=== PATIENT | female | born 1985 | race Caucasian/White ===

== ENCOUNTER 2018-07-16 07:09 | Inpatient (IN) | payer OTHER ==
[2018-07-16] MEDS ORDERED: Nalbuphine 20 MG/ML 1 ML Syringe IVPUSH PRN (08:34)
[2018-07-16] MEDS ORDERED: Ondansetron 4 MG/2 ML SDV IVPUSH PRN (08:34)
[2018-07-16] MEDS ORDERED: Sodium Chloride 0.9% 10 ML Syringe FLUSH PRN (08:34)
[2018-07-16] MEDS ORDERED: Oxytocin/Lactated Ringers 10 UNIT/1,000 ML BAG IV SCH ×2 (08:45)
[2018-07-16] MEDS ORDERED: Lactated Ringers 1,000 ML IV SCH (08:45)
--- NOTE | 2018-07-16 11:05 | PCM.LDHP ---
L&D History of Present Illness - General Date of Service: 07/16/18 Admit Problem/Dx: Patient Status Order with Admit Dx/Problem 07/16/18 08:34 Patient Status [ADT] Routine Admission Diagnosis/Problem Admission Diagnosis/Problem Source of Information: Patient, Old Records History Limitations: Reports: No Limitations - History of Present Illness Introduction:: Garcia is a 33 yo G3 P 2-0-0-2 white female who is admitted for elective induction this morning of 07/16/[address] Eng. LYNDA is 07/16/18 by ultrasound done on 12/24/17. She has had two previous full term that occurred by [facility]. Patient had menarche at age 14 and occurs regularly at 28 day intervals. Previous two deliveries are as follow: 1.) Female born 10/30/2010 at 38 weeks gestation age. 7 lbs 5 oz. [facility] [place] Child's name is Michael 2.) Female born 03/25/2014 at 38 4/7 weeks gestation age. 8lbs 3 oz. [facility] in [place]. Child's name is Joy Blanton course was unremarkable. Group B strep was negative. course started at 10 5/7 weeks gestation. She gained 21 lbs through 168--> 189 lbs. Fundal growth was appropriate. No problems were encountered. Vitals remained stable throughout course Laboratory testing: Initial: O-, ( has negative O-) antibody screen negative, HgB 12.7, Plts 229,000, Rubella immune, VDRL/RPR is nonreactive, HBsAg, HIV are negative. Chlamydia, gonorrhea were not done. Second: Hgb 11.6, Plts 214 and GTT was 100 Third: Group B strep negative - Related Data Allergies/Adverse Reactions: Allergies Allergy/AdvReac Type Severity Reaction Status Date / Time No Known Allergies Allergy Verified 03/25/15 11:51 Home Medications: Home Meds Pnv with Ca,No.71/Iron/Fa [ Vitamin Tablet] 1 each PO DAILY 03/25/15 [ History] Benzocaine/Menthol [Dermoplast Pain Relief [place]] 1 applic TOP ASDIRECTED PRN # 20 canister 03/26/15 [Rx] Ibuprofen [Motrin] 600 mg PO Q4H PRN #30 tablet 03/26/15 [Rx] Lanolin [Lansinoh HPA] 1 applic TOP ASDIRECTED PRN #30 crm 03/26/15 [Rx] Sophia Ni [Tucks] 1 pad TOP ASDIRECTED PRN #30 pad 03/26/15 [Rx] Past Medical History - Past Health History Medical/Surgical History: Denies Medical/Surgical History - Past Surgical History Other HEENT Surgeries/Procedures: wisdom teeth Social & Family History - Family History Family Medical History: Noncontributory - Tobacco Use Smoking Status *Q: Never Smoker Second Hand Smoke Exposure: No - Caffeine Use Caffeine Use: Reports: None - Alcohol Use Days Per Week of Alcohol Use: 0 - Recreational Drug Use Recreational Drug Use: No H&P Review of Systems - Review of Systems: Review Of Systems: See Below General: Reports: No Symptoms HEENT: Reports: No Symptoms Pulmonary: Reports: No Symptoms Cardiovascular: Reports: No Symptoms Gastrointestinal: Reports: No Symptoms Genitourinary: Reports: No Symptoms Musculoskeletal: Reports: No Symptoms Skin: Reports: No Symptoms Neurological: Reports: No Symptoms Hematologic/Lymphatic: Reports: No Symptoms L&D Exam - Exam Exam: See Below - Vital Signs Weight: 189 lb - Exam General: Alert, Oriented, Cooperative Neck: Supple, Trachea Midline Lungs: Clear to Auscultation, Normal Respiratory Effort Cardiovascular: Regular Rate, Regular Rhythm, Normal S1, Normal S2 Genitourinary: Cervical dilitation, Enlarged uterus Extremities: Normal Inspection, Normal Range of Motion, Non-Tender, No Pedal Edema, Normal Capillary Refill Skin: Warm, Dry, Intact Psychiatric: Alert, Normal Affect, Normal Mood - Patient Data Lab Results Last 24 hrs: Laboratory Results - last 24 hr 07/16/18 Range/Units 09:00 WBC 9.77 (3.98-10.04) K/mm3 RBC 4.12 (3.98-5.22) M/mm3 Hgb 13.0 (11.2-15.7) gm/L Hct 37.7 (34.1-44.9) % MCV 91.5 (79.4-94.8) fl MCH 31.6 (25.6-32.2) pg MCHC 34.5 (32.2-35.5) g/dl RDW Std Deviation 41.4 (36.4-46.3) fL Plt Count 200 (182-369) K/mm3 MPV 10.4 (9.4-12.3) fl Neut % (Auto) 74.8 H (34.0-71.1) % Lymph % (Auto) 18.6 L (19.3-51.7) % [place] % (Auto) 5.8 (4.7-12.5) % Eos % (Auto) 0.4 L (0.7-5.8) Baso % (Auto) 0.1 (0.1-1.2) % Neut # (Auto) 7.30 H (1.56-6.13) K/mm3 Lymph # (Auto) 1.82 (1.18-3.74) K/mm3 [place] # (Auto) 0.57 H (0.24-0.36) K/mm3 Eos # (Auto) 0.04 (0.04-0.36) K/mm3 Baso # (Auto) 0.01 (0.01-0.08) K/mm3 Result Diagrams: 07/16/18 09:00 Problem List Initiated/Reviewed/Updated: Yes Orders Last 24hrs: Active Orders 24 hr Category Date Time Status Patient Status [ADT] Routine ADT 07/16/18 08:34 Active Activity as Tolerated [RC] PFP Care 07/16/18 08:34 Active Communication Order [RC] ASDIRECTED Care 07/16/18 08:34 Active Heart Tones [RC] ASDIRECTED Care 07/16/18 08:35 Active Non Stress Test [RC] PER UNIT ROUTINE Care 07/16/18 08:34 Active Notify Provider [RC] PFP Care 07/16/18 08:34 Active Notify Provider [RC] PRN Care 07/16/18 08:34 Active Peripheral IV Care [RC] . DIRECTED Care 07/16/18 08:35 Active Pump Management, Intrathecal [RC] ASDIRECTED Care 07/16/18 08:41 Active Urinary Catheter Assessment [RC] ASDIRECTED Care 07/16/18 08:34 Active Vital Signs [RC] PER UNIT ROUTINE Care 07/16/18 08:34 Active Regular Diet [DIET] Diet 07/16/18 Breakfast Active RAPID PLASMA REAGIN,RPR [CHEM] Routine Lab 07/16/18 09:00 Received Lactated Ringers [Ringers, Lactated] 1,000 ml Med 07/16/18 08:45 Active IV ASDIRECTED Lidocaine 1% [Xylocaine 1%] Med 07/16/18 12:00 Once 50 ml INJECT ONETIME ONE Nalbuphine [Nubain] Med 07/16/18 08:34 Active 10 mg IVPUSH Q2H PRN Ondansetron [Zofran] Med 07/16/18 08:34 Active 4 mg IVPUSH Q4H PRN Oxytocin/Lactated Ringers [Pitocin in LR 10 Units/1,000 Med 07/16/18 08:45 Active ML] 10 unit in 1,000 ml IV .CONTINUOUS Oxytocin/Lactated Ringers [Pitocin in LR 10 Units/1,000 Med 07/16/18 08:45 Active ML] 10 unit in 1,000 ml IV TITRATE Sodium Chloride 0.9% [Saline Flush] Med 07/16/18 08:34 Active 10 ml FLUSH ASDIRECTED PRN Electronic Heart Tones Ext w TOCO [WOMSER] Oth 07/16/18 08:34 Ordered Routine Electronic Heart Tones Internal [WOMSER] Per Unit Oth 07/16/18 08:34 Ordered Routine Peripheral IV Insertion Adult [OM.PC] Routine Oth 07/16/18 08:34 Ordered Resuscitation Status Routine Resus Stat 07/16/18 08:34 Ordered Medication Orders Lactated Ringer's (Ringers, Lactated) 1,000 mls @ 100 mls/hr IV ASDIRECTED ANTHONY Last Admin: 07/16/18 09:16 Dose: 100 mls/hr Oxytocin/Lactated Ringer's (Pitocin In Lr 10 Units/1,000 Ml) 10 unit in 1,000 mls @ 12 mls/hr IV TITRATE ANTHONY; Protocol Last Titration: 07/16/18 10:42 Dose: 8 munits/min, 48 mls/hr Titration: 07/16/18 10:00 Dose: 6 munits/min, 36 mls/hr Titration: 07/16/18 09:35 Dose: 4 munits/min, 24 mls/hr Admin: 07/16/18 09:16 Dose: 2 munits/min, 12 mls/hr Oxytocin/Lactated Ringer's (Pitocin In Lr 10 Units/1,000 Ml) 10 unit in 1,000 mls @ 500 mls/hr IV .CONTINUOUS ANTHONY Lidocaine HCl (Xylocaine 1%) 50 ml INJECT ONETIME ONE Stop: 07/16/18 12:01 Nalbuphine HCl (Nubain) 10 mg IVPUSH Q2H PRN PRN Reason: pain Ondansetron HCl (Zofran) 4 mg IVPUSH Q4H PRN PRN Reason: Nausea/Vomiting Sodium Chloride (Saline Flush) 10 ml FLUSH ASDIRECTED PRN PRN Reason: Keep Vein Open Assessment/Plan Comment:: Patient is a 35 yo G 3 P2-0-0-2 at 40 weeks gestational age today, who is admitted for an elective induction performed by Dr. Eng Plan: 1.) Start Pitocin 2.) Monitor activity 3.) Induction done by Dr. Eng 4.) Epidural was discussed. Plan to have natural 4.) Breast feeding
[2018-07-16] MEDS ORDERED: Lidocaine 1% 50 ML MDV INJECT ONE (12:00)
--- NOTE | 2018-07-16 19:38 | PCM.SN ---
- Free Text/Narrative Note: Delivery note: Garcia is a 33-year-old 3 now para 3003 which was at 40-0/7 weeks gestational age by early ultrasound with an LYNDA of 07/16/2018 who was admitted for elective induction of labor this morning. Pitocin induction with artificial rupture membranes augmentation. Patient progressed rather slowly to approximate 7 m then rapidly progressed to complete and delivered somewhat precipitously. The baby was a male infant Apgars of 9 and 9, length of 20 inches, born at 1905 hrs. Baby weighed 3210 g (7 lbs. 1 oz.). Baby was placed on mom's abdomen. The cord was clamped 2 and cut by the baby's father. The umbilical cord had 3 vessels. Cord blood was obtained. Pitocin was increased to 500 mL an hour to facilitate uterine contraction and decreased likelihood of bleeding. Patient had a second degree laceration which was repaired with 3-0 Monocryl suture after infiltration with lidocaine 1%12 mL. She tolerated this well. Placenta delivered in a Morales presentation, appeared intact and complete and was discarded patient desire. 100 mL. Patient plans to breast-feed. Condition: Good
[2018-07-16] MEDS ORDERED: Docusate Sodium 100 MG Cap PO PRN (19:39)
[2018-07-16] MEDS ORDERED: Acetaminophen 325 MG Tab PO PRN (19:39)
[2018-07-16] MEDS ORDERED: Lanolin 100% Cream 7 GM Tube TOP PRN (19:39)
[2018-07-16] MEDS ORDERED: Benzocaine/Menthol 20%-0.5% Spray 56 GM Canister TOP PRN (19:39)
[2018-07-16] MEDS ORDERED: Witch Hazel Medicated Pads 100/Jar TOP PRN (19:39)
[2018-07-16] MEDS: Ibuprofen 600 MG Tab PO PRN (20:15)
[2018-07-16] MEDS: Lidocaine 1% 50 ML MDV ONE ×2 (20:17→20:18)
[2018-07-17] MEDS: Ibuprofen 600 MG Tab PO PRN ×2 (07:01→20:23)
[2018-07-17] MEDS: Prenatal Multivitamin with Calcium/Folic Acid/Iron Tab PO SCH (10:58)
--- NOTE | 2018-07-17 13:29 | PCM.SN ---
- Free Text/Narrative Note: Subjective: Patient is a who is post day 0 from a spontaneous vaginal delivery. She reports some soreness but is otherwise doing well. She would like to discuss going home today if possible. Objective: Temp 99.6, HR 87 , BP: 120/81, RR 13, O2 99 % General appearance is a healthy looking female in no acute distress. Cardiovascular exam showed regular rate and rhythm with normal S1 and S2. Pulmonary exam show cleared ausculation in all lung craft. No swelling or calf tenderness Assessment: Patient is a who is post day 0 from a spontaneous vaginal delivery Plan: Rotation between Ibuprofen and Tylenol for pain management every 4-6 hours Continue post cares. Discuss with Dr. Eng of possible discharge this evening.
--- NOTE | 2018-07-17 13:55 | PCM.DCSUM1 ---
Discharge Summary - Hospital Course Free Text/Narrative:: Garcia is a 33-year-old 3 now para 3003 which was at 40-0/7 weeks gestational age by early ultrasound with an LYNDA of 07/16/2018 who was admitted for elective induction of labor this morning. Pitocin induction with artificial rupture membranes augmentation. Patient progressed rather slowly to approximate 7 m then rapidly progressed to complete and delivered somewhat precipitously. The baby was a male Apgars of 9 and 9, length of 20 inches, born at 1905 hrs. Baby weighed 3210 g (7 lbs. 1 oz.). Baby was placed on mom's abdomen. The cord was clamped 2 and cut by the baby's father. The umbilical cord had 3 vessels. Cord blood was obtained. Pitocin was increased to 500 mL an hour to facilitate uterine contraction and decreased likelihood of bleeding. Patient had a second degree laceration which was repaired with 3-0 Monocryl suture after infiltration with lidocaine 1%12 mL. She tolerated this well. Placenta delivered in a Morales presentation, appeared intact and complete and was discarded patient desire. 100 mL. Patient plans to breast-feed. patient is done well. She is nursing without problems, voiding well, has minimal lochia and is desiring discharge home. Diagnosis: Stroke: No - Discharge Data Discharge Date: 07/17/18 Discharge Disposition: Home, Self-Care 01 Condition: Good - Patient Instructions Diet: Regular Diet as Tolerated (Nursing diet with increase calories and calcium is recommended) Activity: As Tolerated (No intercourse or tampons until vaginal discharge results) Driving: May Drive Today Showering/Bathing: May Shower Showering/Bathing, Other: May take a bath Notify Provider of: Fever, Increased Pain, Swelling and Redness, Nausea and/or Vomiting - Discharge Plan Home Medications: Home Meds Pnv with Ca,No.71/Iron/Fa [ Vitamin Tablet] 1 each PO DAILY 03/25/15 [ History] Benzocaine/Menthol [Dermoplast Pain Relief [place]] 1 applic TOP ASDIRECTED PRN # 20 canister 03/26/15 [Rx] Ibuprofen [Motrin] 600 mg PO Q4H PRN #30 tablet 03/26/15 [Rx] Lanolin [Lansinoh HPA] 1 applic TOP ASDIRECTED PRN #30 crm 03/26/15 [Rx] Sophia Ni [Tucks] 1 pad TOP ASDIRECTED PRN #30 pad 03/26/15 [Rx] Acetaminophen [Tylenol] 650 mg PO Q4H PRN tablet 07/17/18 [Rx] Ibuprofen [Motrin] 600 mg PO Q4H PRN tablet 07/17/18 [Rx] Referrals: Magan Eng MD [Primary Care Provider] - (Return to clinicDr. Eng2 weeks.) - Discharge Summary/Plan Comment DC Time >30 min.: No Discharge Summary/Plan Comment: Discharge instructions: 1. Discharge home 2. Diet, activity and follow-up discussed with patient. Recommend nursing diet with increased calories and calcium. 3. Precautions given concern increased pain, bleeding, temperature, signs/ symptoms of DVT/PE. 4. Medications per home medication was printed, discussed with and given to the patient. 5. Return to clinic-Dr. Eng-[facility] in 2 weeks. Diagnosis: Term -delivered Condition: Good - Patient Data Vitals - Most Recent: Last Vital Signs Temp 37.6 C 07/17/18 09:00 Pulse 87 07/17/18 09:00 Resp 13 07/17/18 09:00 BP 120/81 07/17/18 09:00 Pulse Ox 99 07/17/18 09:00 Weight - Most Recent: 85.729 kg I&O - Last 24 hours: Intake & Output 07/16/18 07/17/18 07/17/18 22:59 06:59 14:59 Intake Total 1800 Balance 1800 Lab Results - Last 24 hrs: Laboratory Results - last 24 hr 07/17/18 Range/Units 06:52 WBC 12.97 H (3.98-10.04) K/mm3 RBC 4.09 (3.98-5.22) M/mm3 Hgb 12.7 (11.2-15.7) gm/L Hct 37.6 (34.1-44.9) % MCV 91.9 (79.4-94.8) fl MCH 31.1 (25.6-32.2) pg MCHC 33.8 (32.2-35.5) g/dl RDW Std Deviation 41.9 (36.4-46.3) fL Plt Count 201 (182-369) K/mm3 MPV 10.8 (9.4-12.3) fl Med Orders - Current: Current Medications Acetaminophen (Tylenol) 650 mg PO Q4H PRN PRN Reason: mild pain or fever Benzocaine/Menthol (Dermoplast Pain Relief [place]) 0 gm TOP ASDIRECTED PRN PRN Reason: Perineal Comfort Measure Last Admin: 07/16/18 20:15 Dose: 1 canister Docusate Sodium (Colace) 100 mg PO BID PRN PRN Reason: Constipation Emollient Ointment (Lansinoh Hpa) 0 gm TOP ASDIRECTED PRN PRN Reason: Sore Nipples Ibuprofen (Motrin) 600 mg PO Q4H PRN PRN Reason: Mild pain or fever Last Admin: 07/17/18 07:01 Dose: 600 mg Prenat Multivit/[place]/Iron/Folic Ac ( Plus Iron) 1 each PO DAILY ANTHONY Last Admin: 07/17/18 10:58 Dose: 1 each Witch Raine (Tucks) 1 pad TOP ASDIRECTED PRN PRN Reason: Hemorrhoid pain Last Admin: 07/16/18 20:15 Dose: 1 tub Discontinued Medications Lactated Ringer's (Ringers, Lactated) 1,000 mls @ 100 mls/hr IV ASDIRECTED ANTHONY Last Admin: 07/16/18 09:16 Dose: 100 mls/hr Oxytocin/Lactated Ringer's (Pitocin In Lr 10 Units/1,000 Ml) 10 unit in 1,000 mls @ 12 mls/hr IV TITRATE ANTHONY; Protocol Last Titration: 07/16/18 14:00 Dose: 20 munits/min, 120 mls/hr Oxytocin/Lactated Ringer's (Pitocin In Lr 10 Units/1,000 Ml) 10 unit in 1,000 mls @ 500 mls/hr IV .CONTINUOUS ANTHONY Last Admin: 07/16/18 20:14 Dose: 500 mls/hr Lidocaine HCl (Xylocaine 1%) Confirm Administered Dose 50 ml .ROUTE .STK-MED ONE Stop: 07/16/18 19:13 Last Admin: 07/16/18 20:18 Dose: 50 ml Nalbuphine HCl (Nubain) 10 mg IVPUSH Q2H PRN PRN Reason: pain Ondansetron HCl (Zofran) 4 mg IVPUSH Q4H PRN PRN Reason: Nausea/Vomiting Sodium Chloride (Saline Flush) 10 ml FLUSH ASDIRECTED PRN PRN Reason: Keep Vein Open
[2018-07-18 03:59] VITALS: BP 107/68
--- NOTE | 2018-07-18 04:47 | PCM.PNPP ---
- General Info Date of Service: 07/18/18 Functional Status: Reports: Pain Controlled, Tolerating Diet, Ambulating, Urinating - Review of Systems General: Reports: No Symptoms Pulmonary: Reports: No Symptoms Cardiovascular: Reports: No Symptoms Gastrointestinal: Reports: No Symptoms Genitourinary: Reports: No Symptoms Musculoskeletal: Reports: No Symptoms Neurological: Reports: No Symptoms - Patient Data Vital Signs - Most Recent: Last Vital Signs Temp 36.8 C 07/18/18 03:00 Pulse 87 07/17/18 09:00 Resp 14 07/18/18 03:00 BP 107/68 07/18/18 03:00 Pulse Ox 100 07/17/18 21:00 Weight - Most Recent: 85.729 kg I&O - Last 24 Hours: Intake & Output 07/17/18 07/17/18 07/18/18 14:59 22:59 06:59 Intake Total 320 Balance 320 Lab Results - Last 24 Hours: Laboratory Results - last 24 hr 07/17/18 Range/Units 06:52 WBC 12.97 H (3.98-10.04) K/mm3 RBC 4.09 (3.98-5.22) M/mm3 Hgb 12.7 (11.2-15.7) gm/L Hct 37.6 (34.1-44.9) % MCV 91.9 (79.4-94.8) fl MCH 31.1 (25.6-32.2) pg MCHC 33.8 (32.2-35.5) g/dl RDW Std Deviation 41.9 (36.4-46.3) fL Plt Count 201 (182-369) K/mm3 MPV 10.8 (9.4-12.3) fl Med Orders - Current: Current Medications Acetaminophen (Tylenol) 650 mg PO Q4H PRN PRN Reason: mild pain or fever Benzocaine/Menthol (Dermoplast Pain Relief [place]) 0 gm TOP ASDIRECTED PRN PRN Reason: Perineal Comfort Measure Last Admin: 07/16/18 20:15 Dose: 1 canister Docusate Sodium (Colace) 100 mg PO BID PRN PRN Reason: Constipation Last Admin: 07/17/18 20:23 Dose: 100 mg Emollient Ointment (Lansinoh Hpa) 0 gm TOP ASDIRECTED PRN PRN Reason: Sore Nipples Last Admin: 07/17/18 20:23 Dose: 1 applic Ibuprofen (Motrin) 600 mg PO Q4H PRN PRN Reason: Mild pain or fever Last Admin: 07/17/18 20:23 Dose: 600 mg Prenat Multivit/[place]/Iron/Folic Ac ( Plus Iron) 1 each PO DAILY ANTHONY Last Admin: 07/17/18 10:58 Dose: 1 each Witch Raine (Tucks) 1 pad TOP ASDIRECTED PRN PRN Reason: Hemorrhoid pain Last Admin: 07/16/18 20:15 Dose: 1 tub Discontinued Medications Lactated Ringer's (Ringers, Lactated) 1,000 mls @ 100 mls/hr IV ASDIRECTED ANTHONY Last Admin: 07/16/18 09:16 Dose: 100 mls/hr Oxytocin/Lactated Ringer's (Pitocin In Lr 10 Units/1,000 Ml) 10 unit in 1,000 mls @ 12 mls/hr IV TITRATE ANTHONY; Protocol Last Titration: 07/16/18 14:00 Dose: 20 munits/min, 120 mls/hr Oxytocin/Lactated Ringer's (Pitocin In Lr 10 Units/1,000 Ml) 10 unit in 1,000 mls @ 500 mls/hr IV .CONTINUOUS ANTHONY Last Admin: 07/16/18 20:14 Dose: 500 mls/hr Lidocaine HCl (Xylocaine 1%) Confirm Administered Dose 50 ml .ROUTE .[employer]-MED ONE Stop: 07/16/18 19:13 Last Admin: 07/16/18 20:18 Dose: 50 ml Nalbuphine HCl (Nubain) 10 mg IVPUSH Q2H PRN PRN Reason: pain Ondansetron HCl (Zofran) 4 mg IVPUSH Q4H PRN PRN Reason: Nausea/Vomiting Sodium Chloride (Saline Flush) 10 ml FLUSH ASDIRECTED PRN PRN Reason: Keep Vein Open - Infant Interaction Disposition, : in Room with Family Interaction: Holding Infant Feeding: Breastfed Infant; Nursed Well Support Person: - Recovery Exam Fundal Tone: Firm Fundal Level: 1 Fingerbreadths Below Umbilicus Fundal Placement: Midline Lochia Amount: Small Lochia Color: Rubra/Red Perineum Description: Other (see below) Other Perinuem Description: 2nd degree laceration Episiotomy/Laceration: Approximated Bladder Status: Voiding Urinary Elimination: Voided - Exam General: Alert, Oriented, Cooperative GI/Abdominal Exam: Soft, Non-Tender Extremities: Normal Inspection Skin: Warm, Dry, Intact - Problem List Review Problem List Initiated/Reviewed/Updated: Yes - Assessment Assessment:: PPD#2 from - Plan Plan:: S/p * Routine cares * Encourage breast feeding * Discharge home today
[2018-07-18] MEDS: Ibuprofen 600 MG Tab PO PRN (09:13)
[2018-07-18] MEDS: Prenatal Multivitamin with Calcium/Folic Acid/Iron Tab PO SCH (09:13)
== END 2018-07-18 13:30 | disposition home or self-care (01) | DRG 807 ==
LOC: JD.OB 07:09 → OBSVTOIN 19:05
PROVIDERS: ADMIT Obstetrics & Gynecology; ATTEND Obstetrics & Gynecology
PROC: 10E0XZZ Delivery of Products of Conception, External Approach (ICD-10-PCS; principal; 2018-07-16)
PROC: 0KQM0ZZ Repair Perineum Muscle, Open Approach (ICD-10-PCS; 2018-07-16)
PROC: 10907ZC Drainage of Amniotic Fluid, Therapeutic from Products of Conception, Via Natural or Artificial Opening (ICD-10-PCS; 2018-07-16)
PROC: 6A550ZT Pheresis of Cord Blood Stem Cells, Single (ICD-10-PCS; 2018-07-16)
PROC: 3E033VJ Introduction of Other Hormone into Peripheral Vein, Percutaneous Approach (ICD-10-PCS; 2018-07-16)
DX: O48.0 Post-term pregnancy (principal); Z37.0 Single live birth; Z3A.40 40 weeks gestation of pregnancy; O62.3 Precipitate labor; O70.1 Second degree perineal laceration during delivery
CPT/HCPCS: 36415; 59025; 59300; 59409; 85025; 85027; 86592; A9270-GY; J2590; J7120